=== PATIENT | male | born 1950 | race Caucasian/White ===

== ENCOUNTER → 2022-07-01 | Outpatient (CLI) | payer MEDICARE ==
--- NOTE | 2022-07-02 11:35 | CA ---
Transthoracic Echo Report Name: Pasquale Cerna Age: 71 Gender: M : 1950 Exam Date: 07/01/2022 14:20 Exam Location: [place] Echo Ht (in): 72 Wt (lb): 300 Ordering Physician: Puneet Cross MD Attending/Referring Phys: Puneet Cross MD Glass Engraver Yadira Mcpherson, [facility] Procedure CPT: Indications: I10 HTN Cardiac Hx: Technical Quality: Technically difficult study Contrast 1: Lumason Total Dose (mL): 4 Contrast 2: Total Dose (mL): MEASUREMENTS (Male / Female) Normal Values 2D ECHO LV Diastolic Diameter PLAX 6.2 cm 4.2 - 5.9 / 3.9 - 5.3 cm LV Systolic Diameter PLAX 5.1 cm IVS Diastolic Thickness 1.2 cm 0.6 - 1.0 / 0.6 - 0.9 cm LVPW Diastolic Thickness 1.4 cm 0.6 - 1.0 / 0.6 - 0.9 cm LV Relative Wall Thickness 0.4 RV Internal Dim ED PLAX 4.0 cm M-MODE Aortic Root Diameter MM 4.1 cm LA Systolic Diameter MM 4.5 cm LA Ao Ratio MM 1.1 MV E Point Septal Separation 0.3 cm AV Cusp Separation MM 2.1 cm DOPPLER MV Area PHT 3.7 cm??? Mitral E Point Velocity 33.2 cm/s Mitral A Point Velocity 53.0 cm/s Mitral E to A Ratio 0.6 MV Deceleration Time 205.8 ms FINDINGS Left Ventricle Mildly increased septal wall thickness. Mildly increased left ventricular diastolic diameter. Left ventricular ejection fraction is estimated at 40-45%. Inferior and inferolateral wall hypokinesis Right Ventricle Normal right ventricular size and function. Right ventricular systolic pressure within normal limits. Right Atrium Normal right atrial size. Left Atrium Normal left atrial size. Mitral Valve Structurally normal mitral valve. Mild mitral regurgitation. Aortic Valve Trileaflet aortic valve.aortic valve not well visualized. Tricuspid Valve Structurally normal tricuspid valve. Mild tricuspid regurgitation. Pulmonic Valve Pulmonic valve not well visualized. Pericardium Normal pericardium. Aorta Normal size aortic root and proximal ascending aorta. CONCLUSIONS 1. Normal left ventricle size with moderate hypokinesis with segmental wall motion abnormality 2. Mild mitral and tricuspid regurgitation. Previewed by: Dr. Cherri Danielle MD (Electronically Signed) Final Date: 02 July 2022 11:35
== END | disposition home or self-care (01) ==
LOC: RADECHMAIN 14:12
PROVIDERS: ATTEND Family Medicine
DX: I08.1 Rheumatic disorders of both mitral and tricuspid valves (principal); I10 Essential (primary) hypertension; R94.31 Abnormal electrocardiogram [ECG] [EKG]
CPT/HCPCS: 93306; Q9950

== ENCOUNTER → 2022-07-03 | Outpatient (CLI) | payer MEDICARE ==
[2022-07-03 17:15] LABS: INR 0.9 (<1.2); Partial Thromboplastin Time 24.3 sec (22.0-30.0); Prothrombin Time 10.1 sec (9.0-12.0)
[2022-07-03 22:53] LABS: Appearance,Urine Clear (Clear); Bilirubin,Urine Negative (Negative); Blood,Urine Negative (Negative); Color,Urine Yellow (Yellow); Ketones,Urine Negative (Negative); Nitrite,Urine Negative (Negative); Specific Gravity,Urine 1.018 (1.001-1.030)
[2022-07-03 22:55] LABS: HCT 42.6 % (39.6-50.0); HGB 14.1 g/dL (13.0-17.0); MCH 33.9 pg (27.0-32.0); MCHC 33.1 g/dL (32.0-37.0); MCV 102.4 fL (80.0-97.0); Mean Platelet Volume 10.1 fL (9.5-12.2); NRBC Per 100 WBC 0 /100 WBCS (0.0-0.0); Platelet Count 236 X 10*3/uL (140-440); RBC 4.16 X 10*6/uL (4.40-5.60); RDW 12.3 % (11.5-14.5)
[2022-07-03 23:15] LABS: Bacteria,Urine Trace /HPF (None Seen)
[2022-07-04 00:05] LABS: African American GFR (CKD) 79.6 (60.0-200.0); Albumin 4.4 g/dL (3.8-4.9); Albumin/Globulin Ratio 1.98 (1.60-3.17); Anion Gap 12.3 mmol/L (10.00-18.00); BUN/Creat Ratio 16.39 Ratio (12.00-20.00); Blood Urea Nitrogen 17.7 mg/dL (9.0-27.0); Calcium 9.7 mg/dL (8.7-10.3); Carbon Dioxide 25.6 mmol/L (20.0-27.5); Globulin 2.2 g/dL (1.6-3.3); Non-African American GFR(CKD) 68.7 (60.0-200.0); Potassium 4.4 mmol/L (3.5-5.5); Total Bilirubin 0.6 mg/dL (0.30-1.20); Total Protein 6.6 g/dL (6.2-8.2)
== END | disposition home or self-care (01) ==
LOC: LABPAT 16:04
PROVIDERS: ATTEND Orthopaedic Surgery
DX: Z01.818 Encounter for other preprocedural examination (principal); I45.10 Unspecified right bundle-branch block; M16.11 Unilateral primary osteoarthritis, right hip; E11.9 Type 2 diabetes mellitus without complications; R94.31 Abnormal electrocardiogram [ECG] [EKG]
CPT/HCPCS: 80053; 81001; 83036; 85027; 85610; 85730; 87070; 93005

== ENCOUNTER → 2022-07-05 | Outpatient (CLI) | payer MEDICARE ==
[~2022-07-05] MED LIST: REGADENOSON 0.4 MG/5 ML SYRINGE IV PRN
--- NOTE | 2022-07-05 12:13 | CA ---
Lexiscan Nuclear Stress Test Report Name: Pasquale Cerna Exam Date: 07/05/2022 10:53 Exam Location: [place] Stress Ht (in): 74 Wt (lb): 307 BSA: 2.61 Ordering Phys: Puneet Cross MD Referring Phys: Puneet Cross MD Technologist: Uziel Marin Age: 71 Gender: M : 1950 Procedure CPT: Indications: I25.2 OLD MYOCARDIAL INFARCTION ICD-10 Codes: Patient History: DIABETES, FAMILY HX OF HEART DISEASE, PRIOR AR, PRIOR CATH, CABG X 3 Medications: LOSARTAN, LEVOTHYROXINE, FUROSEMIDE, METFORMIN, BUPROPRION, GLIPIZIDE Meds past 24 hrs: Pretest Chest Pain: STRESS TEST Lexiscan Protocol Exercise Duration (min:sec): 01:[address] Depressions (mm): Angina Score: Major Score: Resting HR (bpm): 75 Peak HR (bpm): 84 Resting BP (mmHg): 107 / 61 Peak BP (mmHg): 118 / 60 MPHR: 149 Target HR: 127 % MPHR: 56 METS: 1.0 Total Dose: Peak Dose: Atropine: Double Product: 9912 BP Response: Stress Termination: INFUSION COMPLETE Stress Symptoms: NO SYMPTOMS Stress Summary: ECG ANALYSIS Resting ECG: Sinus rhythm. Right bundle branch block. No arrhythmias. Stress ECG: No ECG changes from baseline with Lexiscan infusion. CONCLUSIONS No ECG evidence of ischemia with Lexiscan infusion. Nuclear test results to follow. Dr. Cherri Danielle MD (Electronically Signed) Final Date: 05 July 2022 12:12
--- NOTE | 2022-07-05 13:36 | NM ---
EXAMINATION TYPE: NM stress lexiscan cardiolite DATE OF EXAM: 07/05/2022 COMPARISON: NONE HISTORY: 71-year-old male I25.2 OLD MYOCARDIAL INFARCTION TECHNIQUE: After the intravenous administration of 10.5 mCi Tc 99m Sestamibi - Cardiolite resting SP ECT images acquired 60 minutes post injection. The patient received 0.4mg Lexiscan, 26.4 mCi Tc 99m Sestamibi - Stress images obtained [address] injection FINDINGS: Review of stress and rest SPECT images demonstrates fixed perfusion defect along the apical inferior and inferolateral wall. This extends to involve more of the lateral wall near the apex. Rest images s how decreased perfusion mid to basal anterior wall not seen on stress, compatible with attenuation ar tifact. No distinct perfusion abnormality. Gated analysis shows limited augmentation along the mid t o apical inferolateral wall. Otherwise, normal wall motion with an estimated left ventricular ejectio n fraction of 58 %. TID is upper limits of normal at 1.14. IMPRESSION: Correlate for prior inferior wall infarct. Based on these findings, unable to exclude some nayana-infar ct ischemia along the mid to apical inferolateral wall.
== END | disposition home or self-care (01) ==
LOC: RADNMMAIN 09:13
PROVIDERS: ATTEND Family Medicine
DX: I25.2 Old myocardial infarction (principal)
CPT/HCPCS: 93017; 78452; A9500; J2785

== ENCOUNTER → 2022-07-22 | Outpatient (CLI) | payer MEDICARE ==
[2022-07-22 17:39] LABS: INR 0.9 (<1.2); Partial Thromboplastin Time 23.9 sec (22.0-30.0)
[2022-07-22 23:26] LABS: African American GFR (CKD) 77.9 (60.0-200.0); Albumin 4.2 g/dL (3.8-4.9); Albumin/Globulin Ratio 1.75 (1.60-3.17); Anion Gap 12.1 mmol/L (10.00-18.00); BUN/Creat Ratio 17.36 Ratio (12.00-20.00); Blood Urea Nitrogen 19.1 mg/dL (9.0-27.0); Calcium 9.6 mg/dL (8.7-10.3); Carbon Dioxide 23.9 mmol/L (20.0-27.5); Globulin 2.4 g/dL (1.6-3.3); Non-African American GFR(CKD) 67.2 (60.0-200.0); Potassium 4.4 mmol/L (3.5-5.5); Total Bilirubin 0.6 mg/dL (0.30-1.20); Total Protein 6.6 g/dL (6.2-8.2)
[2022-07-22 23:29] LABS: Appearance,Urine Clear (Clear); Bilirubin,Urine Negative (Negative); Blood,Urine Negative (Negative); Color,Urine Dark Yellow (Yellow); Ketones,Urine Trace mg/dL (Negative); Nitrite,Urine Negative (Negative); PH, Urine 5.5 (5.0-8.0); Specific Gravity,Urine 1.021 (1.001-1.030)
[2022-07-22 23:33] LABS: Bacteria,Urine Trace /HPF (None Seen)
[2022-07-22 23:49] LABS: HCT 42.1 % (39.6-50.0); HGB 14.1 g/dL (13.0-17.0); MCH 34.1 pg (27.0-32.0); MCHC 33.5 g/dL (32.0-37.0); MCV 101.7 fL (80.0-97.0); NRBC Per 100 WBC 0 /100 WBCS (0.0-0.0); Platelet Count 253 X 10*3/uL (140-440); RBC 4.14 X 10*6/uL (4.40-5.60); RDW 12.2 % (11.5-14.5); WBC 5.98 X 10*3/uL (4.50-10.00)
== END | disposition home or self-care (01) ==
LOC: LABPAT 16:24
PROVIDERS: ATTEND Orthopaedic Surgery
DX: Z01.812 Encounter for preprocedural laboratory examination (principal); E11.9 Type 2 diabetes mellitus without complications; M16.11 Unilateral primary osteoarthritis, right hip
CPT/HCPCS: 80053; 81001; 83036; 85027; 85610; 85730; 87070

== ENCOUNTER 2022-07-26 11:12 | Day surgery (SDC) | payer MEDICARE ==
[2022-07-22 15:26] VITALS: BMI 39.4
[~2022-07-26 11:12] MED LIST changes: +ACETAMINOPHEN TAB 500 MG TAB PO PRN; +DEXAMETHASONE SOD PHOSPHATE 10 MG/ML 1 ML VIAL IV PRN; +DOCUSATE 100 MG CAP PO PRN; +FAMOTIDINE 20 MG/2 ML VIAL IVP PRN; +KETOROLAC 15 MG/ML 1 ML VIAL IVP PRN; +LACTATED RINGERS 1,000 ML IV SCH; +ONDANSETRON 4 MG/2 ML VIAL IVP PRN; -REGADENOSON 0.4 MG/5 ML SYRINGE IV PRN; +ROPIVACAINE/EPI/CLONIDINE/KET 50 ML SYRINGE MISCELLANE PRN; +TRANEXAMIC ACID IN NACL,ISO-OS 1,000 MG in SALINE 1 100ML.BAG IVPB PRN; +ceFAZolin 3 GM in SODIUM CHLORIDE 0.9% 100 ML IVPB PRN; +oxyCODONE ER 10 MG TAB.ER.12H PO PRN
[2022-07-26 12:09] VITALS: RESP 16; TEMP 96.9
[2022-07-26 12:13] LABS: Glucose,Whole Blood 124 mg/dL (70-110)
[2022-07-26] MEDS ORDERED: MIDAZOLAM 2 MG/2 ML VIAL IVP ONE (12:31)
[2022-07-26 12:48] VITALS: BP 135/66; PULSE 79
--- NOTE | 2022-07-26 12:58 | P.ANPRN ---
Procedure Note - Anesthesia - Nerve Block Performed Right Agustin Single Time Out Performed: Yes Date of Procedure: 07/26/22 Procedure Start Time: 12:30 Procedure Stop Time: 12:45 Location of Patient: PreOp Indication: Acute Post-Operative Pain, Requested by Surgeon Sedation Type: Sedate with meaningful contact maintained Preparation: Sterile Prep, Sterile Dressing Position: Supine Catheter: None Needle Types: Facet Needle Gauge: 20 Ultrasound used to visualize needle placement: Yes Ultrasound used to observe medication spread: Yes Injectate: 0.5% Ropivacaine (see comment for volume) (30 ml + decadron 4 mg) Blood Aspirated: No Pain Paresthesia on Injection Noted: No Resistance on Injection: Normal Image Stored and Saved: Yes Events: Uneventful and Well Tolerated
--- NOTE | 2022-07-26 13:32 | P.PN ---
Progress Note - Text Progress Note Date: 07/26/22 The patient is a very pleasant 71-year-old male with multiple medical problems who came in today for an elective right total hip replacement. After the patient had received his block I was called by nursing to examine his inguinal creases. There is soft tissue breakdown in both of his groin creases with superficial wounds. Based on the location of the wound breakdown and quality of the soft tissue over the anterior aspect of the right hip I felt it would potentially violate my planned incision. In addition to poor soft tissue in the vicinity of the surgical approach the patient also had a positive urinalysis and swelling in both of his legs. Given this plus all of his medical issues including coronary artery disease and diabetes I decided to cancel his elective hip replacement. The patient and his son all understandably upset were very understanding for the rationale. I recommended local wound care for his inguinal creases and antibiotics for his urinary tract infection. I will see the patient in 2 weeks to reevaluate and assess whether he is a good surgical candidate.
== END 2022-07-26 13:55 | disposition home or self-care (01) ==
LOC: OR 11:12
PROVIDERS: ATTEND Orthopaedic Surgery
DX: M16.11 Unilateral primary osteoarthritis, right hip (principal); I25.10 Atherosclerotic heart disease of native coronary artery without angina pectoris; E10.9 Type 1 diabetes mellitus without complications; N39.0 Urinary tract infection, site not specified; E03.9 Hypothyroidism, unspecified; Z79.890 Hormone replacement therapy; F32.A Depression, unspecified; Z79.02 Long term (current) use of antithrombotics/antiplatelets; Z79.2 Long term (current) use of antibiotics; Z79.01 Long term (current) use of anticoagulants; Z79.899 Other long term (current) drug therapy; Z79.1 Long term (current) use of non-steroidal anti-inflammatories (NSAID); Z79.891 Long term (current) use of opiate analgesic; G89.18 Other acute postprocedural pain; R26.81 Unsteadiness on feet; E78.5 Hyperlipidemia, unspecified; F10.20 Alcohol dependence, uncomplicated; Z95.1 Presence of aortocoronary bypass graft; Z98.890 Other specified postprocedural states
CPT/HCPCS: 27130; 86900; 86901; 86850; J2250; J1100; J2405; J1885